=== PATIENT | male | born 1990 | race Caucasian/White ===

== ENCOUNTER 2016-05-01 17:19 | Emergency (ER) | payer BC, OTHER ==
[2016-05-01] MEDS ORDERED: IBUPROFEN 600 MG TAB As Ordered ONE (18:44)
--- NOTE | 2016-05-01 19:22 | REP ---
Clinical: Deformity and swelling . Technique: Internal rotation, external rotation, and Y view right shoulder . Findings: No acute fracture or dislocation. The acromioclavicular and glenohumeral joints are intact. No periarticular calcifications or degenerative changes are appreciated. Sub acromial space is normal. Surrounding soft tissues are unremarkable. Impression: Normal right shoulder radiographs. No acute fracture or dislocation. Signed by Ritesh Dennison MD 05/01/2016 07:13 P
--- NOTE | 2016-05-01 19:23 | REP ---
Clinical: Deformity and swelling. Technique: AP and axial views of the right clavicle. Findings: The clavicle is intact and there is no evidence for acute fracture. The acromioclavicular and sternoclavicular joints are normal. Surrounding soft tissues are unremarkable. Impression: Normal right clavicle radiographs. No acute fracture or dislocation. Signed by Ritesh Dennison MD 05/01/2016 07:14 P
--- NOTE | 2016-05-01 19:35 | EDDOCDS ---
Nurse's Notes [facility] Name: Wilfrido Paul Age: 25 yrs Sex: Male : 1990 Arrival Date: 05/01/2016 Time: 17:19 Bed TR7 Private MD: Rohit Pinedo Diagnosis: Contusion of right shoulder Presentation: 05/01 17:28 Presenting complaint: Patient states: slipped on ice and hurt right shoulder. Adult rs3 Sepsis Screening: The patient does not have new or worsening altered mentation. Patient's respiratory rate is less than 22. Systolic blood pressure is greater than 100. Patient has a qSOFA score of 0- Negative Sepsis Screen. Suicide/Homicide risk assessment- the patient denies having any suicidal and/or homicidal ideations and does not present with any other emotional, behavioral or mental health complaints. 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 Transition of care: patient was not received from another setting of care. 17:28 Acuity: JL Level 4 rs3 17:28 Method Of Arrival: Walkin/Carried/Asstd rs3 Triage Assessment: 17:30 General: Appears in no apparent distress. Pain: Location: right arm. Pt Declines HIV rs3 testing. Historical: - Allergies: no known allergies; - Home Meds: 1. Keppra 500 mg Oral tab 2 tabs 2 times per day 2. lamotrigine 50 mg Oral TbDL twice a day - PMHx: Seizures; - PSHx: eye surgery; - Social history: Smoking status: Patient states former smoker of tobacco. No barriers to communication noted, The patient speaks fluent Irish. - Family history: Not pertinent. - : The pt / caregiver states he / she is not on anticoagulants. Home medication list is obtained from the patient. - Exposure Risk Screening:: None identified. Screenin:33 Screening information is obtained from the patient. Fall risk: No risks identified. cz Assistance ADL's: requires no assistance with activities of daily living. Abuse/DV Screen: The patient / caregiver reports he/she is: not in a situation that causes fear, pain or injury. Nutritional screening: No deficits noted. home support is adequate. Assessment: 19:33 Reassessment: Patient appears in no apparent distress at this time. Patient states cz symptoms have improved. Vital Signs: 17:20 BP 136 / 80; Pulse 88; Resp 18 S; Temp 96.4(O); Pulse Ox 98% on R/A; Weight 95.25 kg dd6 (R); Height 5 ft. 2 in. (157.48 cm) (R); 19:16 BP 130 / 81; Pulse 86; Resp 18; Temp 98.5(T); Pulse Ox 98% on R/A; Pain 10/10; ar3 17:20 Body Mass Index 38.41 (95.25 kg, 157.48 cm) dd6 Vitals: 17:20 Log In Time: May 01, 2016 at 17:18. dd6 ED Course: 17:20 Patient visited by Cade Choi PCA. dd6 17:20 Rohit Pinedo is Private Physician. dd6 17:20 Patient moved to Waiting dd6 17:22 Patient moved to Pre RCE dd6 17:29 Triage Initiated rs3 18:15 Patient moved to Triage 1 jo3 18:25 Patient visited by Hilary López RN. dls 18:31 Carlos Alberto Lund RPA-C is PHCP. ck7 18:31 Javed Albarran MD is Attending Physician. ck7 18:42 Patient visited by Carlos Alberto Lund RPA-C. ck7 18:46 Patient moved to TR6 ar3 19:08 Patient moved to PR1 / 25 cz 19:14 Patient name changed from Wilfrido\S\M\S\Humberto\S\ to Wilfrido\S\Emil\S\Humberto. EDMS 19:14 [facility] Payment Agreement was scanned into [employer] and attached to record. kf3 19:16 Patient visited by Carlos Alberto Lund RPA-C. ck7 19:17 Patient visited by Lucila Pozo PCA. ar3 19:20 Rohit Pinedo is Referral Physician. ck7 19:20 [facility] is Referral Physician. ck7 19:32 Patient moved to TR2 ar3 19:33 Patient moved to TR7 ar3 19:33 The patient / caregiver is instructed regarding the plan of care and ED course. cz 19:33 No IV's were initiated during this patient's visit. No procedures done that require cz assistance. Administered Medications: 18:47 Drug: Ibuprofen 600 mg [ibuprofen 600 mg tablet (1 tabs)] Route: PO; dls Order Results: There are currently no results for this order. Outcome: 19:20 Discharge ordered by Provider. ck7 19:33 Discharge Assessment: Patient awake, alert and oriented x 3. No cognitive and/or cz functional deficits noted. Patient verbalized understanding of disposition instructions. patient administered narcotics - no. The following High Risk Discharge criteria are identified: None. Discharged to home ambulatory. Condition: stable. Discharge instructions given to patient, Instructed on discharge instructions, follow up and referral plans. medication usage, Demonstrated understanding of instructions, medications, Pt was receptive of discharge instructions/ teaching. Prescriptions given X 1. No special radiology studies were completed. Property :Personal belongings accompany Pt. 19:35 Patient left the ED. cz Signatures: Dispatcher [employer] EDMS Hilary López RN RN dls Zecher, Calvin, RN RN cz Helmerci, Jennifer, RN RN jo3 Pb Grace, Reg Reg kf3 Cade Choi, DROPHAMMER OPERATOR DROPHAMMER OPERATOR dd6 Kinjal Tolbert RN RN rs3 Lucila Pozo, DROPHAMMER OPERATOR DROPHAMMER OPERATOR ar3 Carlos Alberto Lnud, RPA-C RPA-Cck7 MTDD
--- NOTE | 2016-05-01 19:35 | EDDOCDS ---
Physician Documentation [facility] Name: Wilfrido Paul Age: 25 yrs Sex: Male : 1990 Arrival Date: 05/01/2016 Time: 17:19 Bed TR7 Private MD: Rohit Pinedo Disposition: 05/01/16 19:20 Discharged to Home/Self Care. Impression: Contusion of right shoulder. - Condition is Stable. - Discharge Instructions: Contusion. - Prescriptions for Ibuprofen 600 mg Oral Tablet - take 1 tablet by ORAL route every 6 hours As needed take with food; 30 tablet. - Medication Reconciliation, Local Pharmacy Hours form. - Follow up: Rohit Pinedo; When: 1 - 2 days; Reason: Recheck today's complaints, Continuance of care. Follow up: [facility]; When: 2 - 3 days; Reason: Recheck today's complaints, Continuance of care. - Problem is new. - Symptoms have improved. - Notes: USE SLING AND MOTRIN INSTRUCTED, FOLLOW UP WITH YOUR DOCTOR OR [facility] IN 2-3 DAYS Historical: - Allergies: no known allergies; - Home Meds: 1. Keppra 500 mg Oral tab 2 tabs 2 times per day 2. lamotrigine 50 mg Oral TbDL twice a day - PMHx: Seizures; - PSHx: eye surgery; - Social history: Smoking status: Patient states former smoker of tobacco. No barriers to communication noted, The patient speaks fluent Indonesian. - Family history: Not pertinent. - : The pt / caregiver states he / she is not on anticoagulants. Home medication list is obtained from the patient. - Exposure Risk Screening:: None identified. Vital Signs: 05/01 17:20 BP 136 / 80; Pulse 88; Resp 18 S; Temp 96.4(O); Pulse Ox 98% on R/A; Weight 95.25 kg / dd6 209.99 lbs (R); Height 5 ft. 2 in. (157.48 cm) (R); 19:16 BP 130 / 81; Pulse 86; Resp 18; Temp 98.5(T); Pulse Ox 98% on R/A; Pain 10/10; ar3 17:20 Body Mass Index 38.41 (95.25 kg, 157.48 cm) dd6 Procedures: 19:21 Fracture care/splinting: Splint applied to right arm using sling, applied by nurse. ck7 Examined by me, post splint application: neurovascular intact, 2+ distal pulses palpable, brisk capillary refill noted, Patient tolerated well. MDM: 18:45 Ibuprofen 600 mg PO once ordered. ck7 18:46 Shoulder, Complete Ordered. EDMS 18:46 Clavicle Ordered. EDMS 18:51 Financial registration complete. kf3 19:14 [facility] Payment Agreement was scanned into [employer] and attached to record. kf3 19:19 Sling ordered. ck7 Administered Medications: 18:47 Drug: Ibuprofen 600 mg [ibuprofen 600 mg tablet (1 tabs)] Route: PO; dls Signatures: Dispatcher [employer] EDMS Damaso Hernandez RN RN cz Pb Grace, Reg Reg kf3 Kinjal Tolbert RN RN rs3 Carlos Alberto Lund, RPA-C RPA-Cck7 Hilary López RN dls The chart was reviewed and I authenticate all verbal orders and agree with the evaluation and treatment provided.Attachments: 19:14 [facility] Payment Agreement kf3 MTDD
--- NOTE | 2016-05-03 20:36 | EDDOCDS ---
Nurse's Notes [facility] Name: Wilfrido Paul Age: 25 yrs Sex: Male : 1990 Arrival Date: 05/01/2016 Time: 17:19 Bed TR7 Private MD: Rohit Pinedo Diagnosis: Contusion of right shoulder Presentation: 05/01 17:28 Presenting complaint: Patient states: slipped on ice and hurt right shoulder. Adult rs3 Sepsis Screening: The patient does not have new or worsening altered mentation. Patient's respiratory rate is less than 22. Systolic blood pressure is greater than 100. Patient has a qSOFA score of 0- Negative Sepsis Screen. Suicide/Homicide risk assessment- the patient denies having any suicidal and/or homicidal ideations and does not present with any other emotional, behavioral or mental health complaints. 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 Transition of care: patient was not received from another setting of care. 17:28 Acuity: JL Level 4 rs3 17:28 Method Of Arrival: Walkin/Carried/Asstd rs3 Triage Assessment: 17:30 General: Appears in no apparent distress. Pain: Location: right arm. Pt Declines HIV rs3 testing. Historical: - Allergies: no known allergies; - Home Meds: 1. Keppra 500 mg Oral tab 2 tabs 2 times per day 2. lamotrigine 50 mg Oral TbDL twice a day - PMHx: Seizures; - PSHx: eye surgery; - Social history: Smoking status: Patient states former smoker of tobacco. No barriers to communication noted, The patient speaks fluent Maltese. - Family history: Not pertinent. - : The pt / caregiver states he / she is not on anticoagulants. Home medication list is obtained from the patient. - Exposure Risk Screening:: None identified. Screenin:33 Screening information is obtained from the patient. Fall risk: No risks identified. cz Assistance ADL's: requires no assistance with activities of daily living. Abuse/DV Screen: The patient / caregiver reports he/she is: not in a situation that causes fear, pain or injury. Nutritional screening: No deficits noted. home support is adequate. Assessment: 19:33 Reassessment: Patient appears in no apparent distress at this time. Patient states cz symptoms have improved. Vital Signs: 17:20 BP 136 / 80; Pulse 88; Resp 18 S; Temp 96.4(O); Pulse Ox 98% on R/A; Weight 95.25 kg dd6 (R); Height 5 ft. 2 in. (157.48 cm) (R); 19:16 BP 130 / 81; Pulse 86; Resp 18; Temp 98.5(T); Pulse Ox 98% on R/A; Pain 10/10; ar3 17:20 Body Mass Index 38.41 (95.25 kg, 157.48 cm) dd6 Vitals: 17:20 Log In Time: May 01, 2016 at 17:18. dd6 ED Course: 17:20 Patient visited by Cade Choi PCA. dd6 17:20 Rohit Pinedo is Private Physician. dd6 17:20 Patient moved to Waiting dd6 17:22 Patient moved to Pre RCE dd6 17:29 Triage Initiated rs3 18:15 Patient moved to Triage 1 jo3 18:25 Patient visited by Hilary López RN. dls 18:31 Carlos Alberto Lund RPA-C is PHCP. ck7 18:31 Javed Albarran MD is Attending Physician. ck7 18:42 Patient visited by Carlos Alberto Lund RPA-C. ck7 18:46 Patient moved to TR6 ar3 19:08 Patient moved to PR1 25 cz 19:14 Patient name changed from Wilfrido\S\M\S\Humberto\S\ to Wilfrido\S\Emil\S\Humberto. EDMS 19:14 [facility] Payment Agreement was scanned into [email or web address] and attached to record. kf3 19:16 Patient visited by Carlos Alberto Lund RPA-C. ck7 19:17 Patient visited by Lucila Pozo PCA. ar3 19:20 Rohit Pinedo is Referral Physician. ck7 19:20 [facility] is Referral Physician. ck7 19:32 Patient moved to TR2 ar3 19:33 Patient moved to TR7 ar3 19:33 The patient / caregiver is instructed regarding the plan of care and ED course. cz 19:33 No IV's were initiated during this patient's visit. No procedures done that require cz assistance. 20:02 Shoulder, Complete Returned. EDMS 20:02 Clavicle Returned. EDMS 21:32 T-Sheet-- Draft Copy was scanned into [email or web address] and attached to record. klr 05/02 11:04 PCR was scanned into [email or web address] and attached to record. gb Administered Medications: 05/01 18:47 Drug: Ibuprofen 600 mg [ibuprofen 600 mg tablet (1 tabs)] Route: PO; dls Order Results: Radiology Order: Shoulder, Complete Test: Shoulder, Complete REASON FOR EXAMINATION: Deformity/Swelling; Clinical: Deformity and swelling .; ; Technique: Internal rotation, external rotation, and Y view right shoulder .; ; Findings:; No acute fracture or dislocation. The acromioclavicular and glenohumeral joints; are intact. No periarticular calcifications or degenerative changes are; appreciated. Sub acromial space is normal. Surrounding soft tissues are; unremarkable.; ; Impression:; Normal right shoulder radiographs. No acute fracture or dislocation.; ; ; Signed by; Ritesh Dennison MD 05/01/2016 07:13 P; Radiology Order: Clavicle Test: Clavicle REASON FOR EXAMINATION: Deformity/Swelling; Clinical: Deformity and swelling.; ; Technique: AP and axial views of the right clavicle.; ; Findings:; The clavicle is intact and there is no evidence for acute fracture. The; acromioclavicular and sternoclavicular joints are normal. Surrounding soft; tissues are unremarkable.; ; Impression:; Normal right clavicle radiographs. No acute fracture or dislocation.; ; ; Signed by; Ritesh Dennison MD 05/01/2016 07:14 P; Outcome: 19:20 Discharge ordered by Provider. ck7 19:33 Discharge Assessment: Patient awake, alert and oriented x 3. No cognitive and/or cz functional deficits noted. Patient verbalized understanding of disposition instructions. patient administered narcotics - no. The following High Risk Discharge criteria are identified: None. Discharged to home ambulatory. Condition: stable. Discharge instructions given to patient, Instructed on discharge instructions, follow up and referral plans. medication usage, Demonstrated understanding of instructions, medications, Pt was receptive of discharge instructions/ teaching. Prescriptions given X 1. No special radiology studies were completed. Property :Personal belongings accompany Pt. 19:35 Patient left the ED. cz Signatures: Dispatcher [facility] Hilary López RN RN dls Zecher, Calvin, RN RN cz Dulce Sellers, Reg Reg gb Remedios Tuttle,RN RN jo3 Pb Grace, Reg Reg kf3 Cade Choi, PRESSURE TANK OPERATOR PRESSURE TANK OPERATOR dd6 Kinjal Tolbert,RN RN rs3 Lucila Pozo, PRESSURE TANK OPERATOR PRESSURE TANK OPERATOR ar3 Carlos Alberto Lund, RPA-C RPA-Cck7 Estefany Trejo Chart Complete MTDD
--- NOTE | 2016-05-03 20:36 | EDDOCDS ---
Physician Documentation [facility] Name: Wilfrido Paul Age: 25 yrs Sex: Male : 1990 Arrival Date: 05/01/2016 Time: 17:19 Bed TR7 Private MD: Rohit Pinedo Disposition: 05/01/16 19:20 Discharged to Home/Self Care. Impression: Contusion of right shoulder. - Condition is Stable. - Discharge Instructions: Contusion. - Prescriptions for Ibuprofen 600 mg Oral Tablet - take 1 tablet by ORAL route every 6 hours As needed take with food; 30 tablet. - Medication Reconciliation, Local Pharmacy Hours form. - Follow up: Rohit Pinedo; When: 1 - 2 days; Reason: Recheck today's complaints, Continuance of care. Follow up: [facility]; When: 2 - 3 days; Reason: Recheck today's complaints, Continuance of care. - Problem is new. - Symptoms have improved. - Notes: USE SLING AND MOTRIN INSTRUCTED, FOLLOW UP WITH YOUR DOCTOR OR [facility] IN 2-3 DAYS Historical: - Allergies: no known allergies; - Home Meds: 1. Keppra 500 mg Oral tab 2 tabs 2 times per day 2. lamotrigine 50 mg Oral TbDL twice a day - PMHx: Seizures; - PSHx: eye surgery; - Social history: Smoking status: Patient states former smoker of tobacco. No barriers to communication noted, The patient speaks fluent Wolof. - Family history: Not pertinent. - : The pt / caregiver states he / she is not on anticoagulants. Home medication list is obtained from the patient. - Exposure Risk Screening:: None identified. Vital Signs: 05/01 17:20 BP 136 / 80; Pulse 88; Resp 18 S; Temp 96.4(O); Pulse Ox 98% on R/A; Weight 95.25 kg / dd6 209.99 lbs (R); Height 5 ft. 2 in. (157.48 cm) (R); 19:16 BP 130 / 81; Pulse 86; Resp 18; Temp 98.5(T); Pulse Ox 98% on R/A; Pain 10/10; ar3 17:20 Body Mass Index 38.41 (95.25 kg, 157.48 cm) dd6 Procedures: 19:21 Fracture care/splinting: Splint applied to right arm using sling, applied by nurse. ck7 Examined by me, post splint application: neurovascular intact, 2+ distal pulses palpable, brisk capillary refill noted, Patient tolerated well. MDM: 18:45 Ibuprofen 600 mg PO once ordered. ck7 18:46 Shoulder, Complete Ordered. EDMS 18:46 Clavicle Ordered. EDMS 18:51 Financial registration complete. kf3 19:14 [facility] Payment Agreement was scanned into [employer] and attached to record. kf3 19:19 Sling ordered. ck7 21:32 T-Sheet-- Draft Copy was scanned into [employer] and attached to record. klr 05/02 11:04 PCR was scanned into [employer] and attached to record. gb Administered Medications: 05/01 18:47 Drug: Ibuprofen 600 mg [ibuprofen 600 mg tablet (1 tabs)] Route: PO; dls Signatures: Dispatcher [employer] EDMS Damaso Hernandez RN RN cz Dulce Sellers, Reg Reg gb Pb Grace, Reg Reg kf3 Kinjal Tolbert RN RN rs3 Carlos Alberto Lund, RPA-C RPA-Cck7 Estefany Trejo Debra RN dls The chart was reviewed and I authenticate all verbal orders and agree with the evaluation and treatment provided.Attachments: 19:14 [facility] Payment Agreement kf3 21:32 T-Sheet-- Draft Copy klr Chart Complete MTDD
--- NOTE | 2016-05-03 20:36 | EDDOCDS ---
Physician Documentation [facility] Name: Wilfrido Paul Age: 25 yrs Sex: Male : 1990 Arrival Date: 05/01/2016 Time: 17:19 Bed TR7 Private MD: Rohit Pinedo Disposition: 05/01/16 19:20 Discharged to Home/Self Care. Impression: Contusion of right shoulder. - Condition is Stable. - Discharge Instructions: Contusion. - Prescriptions for Ibuprofen 600 mg Oral Tablet - take 1 tablet by ORAL route every 6 hours As needed take with food; 30 tablet. - Medication Reconciliation, Local Pharmacy Hours form. - Follow up: Rohit Pinedo; When: 1 - 2 days; Reason: Recheck today's complaints, Continuance of care. Follow up: [facility]; When: 2 - 3 days; Reason: Recheck today's complaints, Continuance of care. - Problem is new. - Symptoms have improved. - Notes: USE SLING AND MOTRIN INSTRUCTED, FOLLOW UP WITH YOUR DOCTOR OR [facility] IN 2-3 DAYS Historical: - Allergies: no known allergies; - Home Meds: 1. Keppra 500 mg Oral tab 2 tabs 2 times per day 2. lamotrigine 50 mg Oral TbDL twice a day - PMHx: Seizures; - PSHx: eye surgery; - Social history: Smoking status: Patient states former smoker of tobacco. No barriers to communication noted, The patient speaks fluent Korean. - Family history: Not pertinent. - : The pt / caregiver states he / she is not on anticoagulants. Home medication list is obtained from the patient. - Exposure Risk Screening:: None identified. Vital Signs: 05/01 17:20 BP 136 / 80; Pulse 88; Resp 18 S; Temp 96.4(O); Pulse Ox 98% on R/A; Weight 95.25 kg / dd6 209.99 lbs (R); Height 5 ft. 2 in. (157.48 cm) (R); 19:16 BP 130 / 81; Pulse 86; Resp 18; Temp 98.5(T); Pulse Ox 98% on R/A; Pain 10/10; ar3 17:20 Body Mass Index 38.41 (95.25 kg, 157.48 cm) dd6 Procedures: 19:21 Fracture care/splinting: Splint applied to right arm using sling, applied by nurse. ck7 Examined by me, post splint application: neurovascular intact, 2+ distal pulses palpable, brisk capillary refill noted, Patient tolerated well. MDM: 18:45 Ibuprofen 600 mg PO once ordered. ck7 18:46 Shoulder, Complete Ordered. EDMS 18:46 Clavicle Ordered. EDMS 18:51 Financial registration complete. kf3 19:14 [facility] Payment Agreement was scanned into [employer] and attached to record. kf3 19:19 Sling ordered. ck7 21:32 T-Sheet-- Draft Copy was scanned into [employer] and attached to record. klr 05/02 11:04 PCR was scanned into [employer] and attached to record. gb Administered Medications: 05/01 18:47 Drug: Ibuprofen 600 mg [ibuprofen 600 mg tablet (1 tabs)] Route: PO; dls Signatures: Dispatcher [employer] EDMS Damaso Hernandez RN RN cz Dulce Sellers, Reg Reg gb Pb Grace, Reg Reg kf3 Kinjal Tolbert RN RN rs3 Carlos Alberto Lund, RPA-C RPA-Cck7 Estefany Trejo Debra RN dls The chart was reviewed and I authenticate all verbal orders and agree with the evaluation and treatment provided.Attachments: 19:14 [facility] Payment Agreement kf3 21:32 T-Sheet-- Draft Copy klr Chart Complete MTDD
== END 2016-05-01 19:35 | disposition home or self-care (01) ==
LOC: M ED 17:19
DX: S40.011A Contusion of right shoulder, initial encounter (principal); W00.0XXA Fall on same level due to ice and snow, initial encounter; Y92.89 Other specified places as the place of occurrence of the external cause; Y93.01 Activity, walking, marching and hiking; Y99.8 Other external cause status; R56.9 Unspecified convulsions; Z79.899 Other long term (current) drug therapy; Z87.891 Personal history of nicotine dependence